=== PATIENT | female | born 1955 | race Hispanic/Latino ===

== ENCOUNTER 2021-04-25 09:17 | Day surgery (SDC) | payer MEDICARE ==
--- NOTE | 2021-04-23 16:35 | Anesthesia Consultation ---
Anesthesia Consult and Med Hx Date of service: 04/25/21 - Airway Anesthetic Teeth Evaluation: Dentures, Edentulous ROM Head & Neck: Adequate Mental/Hyoid Distance: Adequate Mallampati Class: Class I - Pre-Operative Health Status ASA Pre-Surgery Classification: ASA3 Proposed Anesthetic Plan: General - Pulmonary Hx Smoking: Yes (Former) - Cardiovascular System Hx Hypertension: Yes Hx Coronary Artery Disease: Yes Hx Heart Attack/AMI: Yes (03/2016) Hx Internal Defibrillator: Yes ([employer]) - Central Nervous System Hx Neuromuscular Disorder: Yes (Neuropathy-feet) CVA: Yes (TIA 03/2016-no deficits) Hx Psychiatric Problems: No - Endocrine Hx Non-Insulin Dependent Diabetes: Yes - Other Systems Hx Cancer: No
[~2021-04-25 09:17] MED LIST: LACTATED RINGERS 1,000 ML IV SCH
--- NOTE | 2021-04-25 09:31 | Short Stay Summary ---
Short Stay Documentation Date of service: 04/25/21 Narrative H&P: 65y/o with postmenopausal bleeding. Ultrasound unremarkable. Endometrial biopsy without evidence of carcinoma - History Principal diagnosis: Postmenopausal bleeding Past Medical History: CAD, diabetes, hypertension Past Surgical History: total knee replacement Social history: - Allergies and Medications Current Medications: Allergies No Known Allergies Allergy (Unverified 04/20/21 19:05) Home Medications Medication Instructions Recorded Confirmed Last Taken Type Aspirin [Adult Aspirin] 81 mg PO DAILY 04/23/21 04/23/21 04/21/21 History AtorvaSTATin [Lipitor] 40 mg PO QHS 04/23/21 04/23/21 Unknown History Clopidogrel [Plavix] 75 mg PO QDAY 04/23/21 04/23/21 04/22/21 History Ergocalciferol [Vitamin D2] 1 cap PO QWEEK 04/23/21 04/23/21 Unknown History Gabapentin [Neurontin] 300 mg PO BID 04/23/21 04/23/21 Unknown History Insulin Aspart (Nf) [NovoLOG 22 - 28 units SQ AC 04/23/21 04/23/21 Unknown History Flexpen] Insulin Detemir (Nf) [Levemir 60 units SQ HS 04/23/21 04/23/21 Unknown History Flextouch (Nf)] Lisinopril [Zestril] 5 mg PO DAILY 04/23/21 04/23/21 Unknown History carvediloL [Coreg] 6.25 mg PO BID 04/23/21 04/23/21 Unknown History hydroCHLOROthiazide 12.5 mg PO DAILY 04/23/21 04/23/21 Unknown History [Hydrochlorothiazide] traMADoL [Ultram] 50 mg PO Q6HR PRN 04/23/21 04/23/21 Unknown History Active Medications Lactated Ringer's (Lactated Ringers) 1,000 mls @ 100 mls/hr IV DIRECT IGNACIO - Physical exam General appearance: no acute distress Integumentary: no rash HEENT: Atraumatic Lungs: Clear to auscultation Breasts: deferred Heart: Regular rate Gastrointestinal: normal Female Genitourinary: deferred Rectal Exam: deferred - Brief post op/procedure progress note Date of procedure: 04/25/21 Pre-op diagnosis: Postmenopausal bleeding Post-op diagnosis: other (Endometrial polyp) Procedure: Hysteroscopy sent Dilatation and curettage Polypectomy Anesthesia: ALEJANDRO Surgeon: JESSICA SIDDIQUI Estimated blood loss: minimal Pathology: list (Endometrial polyp and curettings) Specimen disposition: to lab Condition: stable - Hospital course Hospital course: The patient was taken to the operating room and underwent a hysteroscopy dilatation and curettage. Please see operative note for details of surgery. Her postoperative course was uneventful. - Disposition Condition at discharge: Good Disposition: 01 HOME / SELF CARE / HOMELESS Short Stay Discharge Plan Activity: other (Pelvic rest for 1 week) Diet: regular Additional Instructions: Schedule follow-up with Dr. Siddiqui in 2 to 4 weeks Prescriptions: Ibuprofen [Motrin] 800 mg PO Q8HR PRN #30 tablet PRN Reason: Pain , Severe (7-10) HYDROcodone/APAP 5-325 [[place] 5/325] 1 each PO Q6HR PRN #15 tablet PRN Reason: Pain
--- NOTE | 2021-04-25 09:48 | Anesthesia Day of Surgery ---
Anesthesia Day of Surgery - Day of Surgery Patient Examined: Yes Patient H&P Reviewed: Yes Patient is NPO: Yes Beta Blockers: Yes
[2021-04-25] MEDS ORDERED: propofoL 200 MG/20 ML VIAL IV ONE (10:27)
[2021-04-25] MEDS ORDERED: HYDROmorphone 1 MG/1 ML INJ IV PRN ×2 (10:30)
[2021-04-25] MEDS ORDERED: ONDANSETRON 4 MG/2 ML INJ IV PRN (10:30)
[2021-04-25] MEDS ORDERED: MIDAZOLAM 2 MG/2 ML INJ IV NR (10:30)
[2021-04-25] MEDS ORDERED: ONDANSETRON 4 MG/2 ML INJ ONE (10:37)
[2021-04-25] MEDS ORDERED: KETOROLAC 30 MG/1 ML INJ ONE (10:37)
[2021-04-25] MEDS ORDERED: dexAMETHasone 20 MG/5 ML VIAL ONE (10:37)
[2021-04-25] MEDS ORDERED: LIDOCAINE MPF (2%) 20 MG/1 ML VIAL 5 ML ONE (10:37)
[2021-04-25] MEDS ORDERED: SODIUM CHLORIDE 0.9% IRR 1,500 ML BOTTLE IR ONE (11:07)
[2021-04-25] MEDS ORDERED: SODIUM CHLORIDE 0.9% IRRIG SOLN 2000 ML IR ONE (11:07)
--- NOTE | 2021-04-25 11:22 | Operative Report ---
Operative Report Operative Report: Date of procedure: April 25, 2021 Pre-operative diagnosis: Postmenopausal bleeding Post-operative diagnosis: Same as above; endometrial polyp Procedure name(s): Hysteroscopy; dilatation and curettage; polypectomy Surgeon: Alta Galo M.D. [employer] Supervisor: None Anesthesia: LMA Findings endometrial polyp with atrophic endometrium Indication: 65-year-old -0-0-3 with a history of postmenopausal bleeding. Procedure The patient was taken to the operating room and given general tracheal anesthesia without complication. The patient was prepped and draped in a normal sterile fashion. A bivalve speculum was placed in the patient's vagina single- tooth tenaculums placed on the anterior lip of the cervix. The cervical os was dilated with graduated dilators. A uterine sound was inserted. The hysteroscope was then placed. Insufflation of the uterine cavity was performed with normal saline. Gen. survey of the uterine cavity revealed endometrial polyp with atrophic endometrium. The hysteroscope was then removed. The polyp forceps were placed through the dilated cervical os this. Multiple passes were performed with removal of the endometrial polyp. A sharp curettage of the endometrial surface was performed. The hysteroscope was again reinserted. There was evidence of removal of the polyp. The remainder of the vaginal instruments were then removed atraumatically. The patient was then successfully extubated taken to the recovery room. All sponge laps and needle counts were correct 2.
--- NOTE | 2021-04-25 17:38 | Post Anesthesia Evaluation ---
- Post Anesthesia Evaluation Patient Participated: Yes Airway Patent: Yes Stable Respiratory Function: Yes Nausea/Vomiting: No Temp > 96.8F: Yes Pain Manageable: Yes Adequeate Hydration: Yes Anesthesia Complications: No Block Receding Appropriately: Not Applicable Patient on Ventilator: No
[2021-04-25 18:56] VITALS: BP 116/54
== END 2021-04-25 13:40 | disposition home or self-care (01) ==
LOC: OR 09:17 → EDBD 09:30 → OR 13:40
PROVIDERS: ATTEND Obstetrics & Gynecology
DX: N95.0 Postmenopausal bleeding (principal); N84.0 Polyp of corpus uteri; Z20.822 Contact with and (suspected) exposure to COVID-19; I10 Essential (primary) hypertension; I25.10 Atherosclerotic heart disease of native coronary artery without angina pectoris; I25.2 Old myocardial infarction; E11.40 Type 2 diabetes mellitus with diabetic neuropathy, unspecified; Z86.73 Personal history of transient ischemic attack (TIA), and cerebral infarction without residual deficits; Z87.891 Personal history of nicotine dependence; Z79.82 Long term (current) use of aspirin; Z79.4 Long term (current) use of insulin; Z79.899 Other long term (current) drug therapy; Z95.810 Presence of automatic (implantable) cardiac defibrillator; Z98.890 Other specified postprocedural states
CPT/HCPCS: 58558; 82962; 88305; A4217; J1100; J1885; J2250; J2405; J2704; J7120; U0003